=== PATIENT | female | born 1945 | race Caucasian/White ===

== ENCOUNTER 2022-06-26 10:47 | Day surgery (SDC) | payer MEDICARE, OTHER, SELFPAY ==
[2022-06-26] VITALS (10 sets, daily range): BP systolic 121–147; BP diastolic 60–92; PULSE 68–74; RESP 16; TEMP 36.8–37.1; O2SAT 90–100; BMI 30.6
--- NOTE | 2022-06-26 | EMB_PTH ---
PATIENT: SUE GUILLEN [place] [facility] [id number] AGE/SX: 77/F ROOM: RE06/26/[address]: Dr. Tj Barraza MD : 1945 BED: DIS: 06/26/2022 SPEC #: [id number] RECD: 06/26/22 16:04 STATUS: WARREN DUNIA #: [id number] AV: 06/26/22 00:[address]: Tj Barraza DEPT: SURGICAL PATHOLOGY RECD BY: Kenneth Martinez ENTERED: 06/27/22 09:13 SP TYPE: ENDOM BX/C OTHR DR: Dr. Patrice Narvaez MD Tissues: Endometrium, NOS Procedures: Surgery Specimen Level IV HEADER OPERATION: Hysteroscopy, dilation and curettage PRE-OP DIAGNOSIS: Vaginal bleeding TISSUE SUBMITTED: Endometrial curettings MICROSCOPIC DIAGNOSIS Endometrial curettings: Polypoid fragments of benign endometrial tissue with inactive endometrium with cystic changes, may represent fragments of endometrial polyp. Fragments of benign squamous epithelium, blood and mucous. See comment. MAXIMO:tod 06/28/2022 COMMENT Clinical correlation and appropriate follow up are necessary. MICROSCOPIC DESCRIPTION Slides are reviewed. GROSS DESCRIPTION Received in fixative is one container labeled with the patient's name and designated endometrial curettings. The specimen consists of multiple fragments of hemorrhagic soft tissue mixed with mucoid tissue that in aggregate measure 2.5 x 2 x 0.3 cm. The specimen is totally submitted in one cassette. / MAXIMO:tod 06/27/2022 TC:5 CPT: 93492
[2022-06-26] MEDS: Lactated Ringers 1,000 ML 15 ML IV (11:49)
--- NOTE | 2022-06-26 11:58 | PCM.HP.BLA ---
History and Physical Date of Admission: 06/26/22 Chief complaint: Vaginal bleeding History present illness: 77-year-old arrives for hysteroscopy, dilation curettage possible LEEP procedure for postmenopausal bleeding and cervical stenosis. No changes medically since last seen. All questions answered and consent signed Obstetric history: G4, P4 with history of 4 deliveries Past medical history: Hypertension, anxiety Medications: Prozac, lisinopril Past surgical history: section x4, left knee surgery, arm surgery, back surgery Allergies: No known drug allergies Social history: Former smoker, denies alcohol or drug use Family history: Denies history DVT or PE Review of systems: Besides above pertinent positives a full review of systems was performed and found to be negative Physical exam: Vitals: Blood pressure 124/92 pulse 69 respiratory rate 16 temperature 98.7 ?F SPO2 1% on room air General: Normal-appearing no acute distress HEENT: Normocephalic/atraumatic no cervical lymphadenopathy Cardiac/respiratory: No use of accessory muscles, nonlabored breathing Abdomen: Soft, nontender, nondistended Extremities: No peripheral edema normal peripheral pulses Psych: Normal affect normal demeanor nonpressured speech Assessment and plan: 77-year-old with postmenopausal bleeding and cervical stenosis elects for hysteroscopy, dilation curettage possible LEEP procedure. Patient understands the risk of the procedure include but are not limited to visceral or vascular injury, prolonged hospitalization, blood loss and need for transfusion, reoperation. Patient state understanding and wished to proceed. All questions were answered and consent was signed.
--- NOTE | 2022-06-26 12:58 | DCINST_ITS ---
Discharge Instructions Diet Discharge Diet: No restrictions Activity Discharge Activity: Return to Normal Activity, May Drive and May Shower May resume sexual activity in: 4-6 weeks Weight Bearing Status: Weight bearing as tolerated Dressing / Incision Call your doctor if your incision/area has: Continuous Slow Oozing and Foul Smelling Discharge Call your doctor if you observe: Fever of 101 or Higher, Shortness of breath and Chest pain Follow Up Care Please Follow Up With: Tj Barraza MD When: 2 weeks postoperatively Test Results: Test results from this visit will be discussed in further detail at your follow- up appointment, if applicable. Discharge Plan Admission Attending Provider: Tj Barraza Primary Care Provider: Patrice Narvaez Discharge Orders/Prescriptions Prescriptions: No Action fluoxetine [Prozac] 40 mg Capsule 40 mg PO QHS lisinopril 20 mg Tablet 20 mg PO DAILY multivitamin Capsule 1 cap PO DAILY calcium carbonate-vitamin D3 [Calcium 500 + D] 500 mg-10 mcg (400 unit) Tablet 2 tab PO DAILY Referrals / Follow Up: Patrice Narvaez MD [Primary Care Provider] - Disposition Disposition (needs filled in before D/C Order can be placed): Home, Self Care
--- NOTE | 2022-06-26 12:59 | PCM.OPRPT ---
Report of Operation Date of Procedure: 06/26/22 Pre-Operative Diagnosis: Postmenopausal bleeding, cervical stenosis Post-Operative Diagnosis: Postmenopausal bleeding, cervical stenosis Surgery/Procedure Performed:: Hysteroscopy, dilation curettage Description of Surgical Findings:: Surgeon: Tj Barraza MD Anesthesia: MAC EBL: Minimal Urine output: 100 cc IV fluids: 500 cc Complications: None Specimen: Endometrial curettings Findings: Hysteroscopy with no pathology noted. Consent: Patient with postmenopausal bleeding and cervical stenosis elects for hysteroscopy, dilation curettage. Patient understands the risk of the procedure include but are not limited to visceral or vascular injury, prolonged hospitalization, blood loss need for transfusion, reoperation. Patient state understanding wish to proceed. All questions were answered and consent was signed. Procedure: Patient was brought back to the OR where MAC anesthesia was found to be adequate. Patient was prepared and draped in a dorsolithotomy position with yellowfin stirrups. A weighted speculum is placed in the posterior aspect of the vagina and cervical dilators were used to dilate cervix. Hysteroscope was inserted and above findings were noted. Sharp endometrial curettings were collected in all quadrants. Sent to pathology. Good hemostasis was noted. All counts were correct x2. Patient tolerated procedure well and was brought to recovery in stable condition.
== END 2022-06-26 14:57 | disposition home or self-care (01) ==
LOC: SDC 10:52 → AC 11:16
PROVIDERS: PCP Family Medicine; Referring Provider Obstetrics & Gynecology; Visit Provider Obstetrics & Gynecology
PROC: 0UDB8ZZ Extraction of Endometrium, Via Natural or Artificial Opening Endoscopic (ICD-10-PCS; CPT 58558; principal; 2022-06-26 12:05)
DX: N95.0 Postmenopausal bleeding (principal); N93.9 Abnormal uterine and vaginal bleeding, unspecified; N88.2 Stricture and stenosis of cervix uteri; Z87.891 Personal history of nicotine dependence; I10 Essential (primary) hypertension; F32.A Depression, unspecified; Z78.0 Asymptomatic menopausal state
CPT/HCPCS: 58558; 00952; 88305; J7120; J2405